=== PATIENT | female | born 1990 | race Caucasian/White ===

== ENCOUNTER 2016-06-21 15:17 | Outpatient (CLI) | payer MEDICAID ==
[~2016-06-21] VITALS: Ht 152.4 cm; Wt 84.5 kg
--- NOTE | 2016-06-21 16:49 | RADRPT ---
PROCEDURE: US OB. CLINICAL INDICATION: Large for gestational age. TECHNIQUE: Multiple sonographic images of the uterus were obtained. The images were revi ewed on a PACS workstation. COMPARISON: No prior studies are available for comparison. FINDINGS: There is a single live intrauterine gestation. heart rate is 146 beats per minute. Measurements were made in order to determine age. The results are as follows: BPD = 9.48 cm. HC = 33.64 cm. AC = 35.53 cm. FL = 7.22 cm. Estimated weight is 3573 +/- 536 grams. LMP growth percentile is 91%. Menstrual age by ultrasound dates is 38 weeks 3 days. The estimated date of delivery is 07/02/2016. Position is cephalic and placenta is fundal grade II. There is no evidence for an abruption or place nta previa. IMPRESSION: 1. Single live intrauterine gestation of 38 weeks 3 days menstrual age by ultrasound dates. 2. The estimated date of delivery is 07/02/2016. 3. Estimated weight is 3573 g which is at the 91st percentile. RPTAT: QQ .Juwan Montoya MD, Date Time Electronically viewed and signed by .Juwan Montoya MD, on 06/21/2016 16:49 .R/
--- NOTE | 2016-06-21 16:56 | RADRPT ---
PROCEDURE: US OB biophysical profile. CLINICAL INDICATION: decreased movements, macrosomia TECHNIQUE: Multiple sonographic images of the pelvis were obtained. The images were reviewed on a PACS workstation. COMPARISON: No prior studies are available for comparison. FINDINGS: There is a single viable intrauterine gestation. Cardiac activity is present with 148 beats per min kemi. There is a vertex presentation. The placenta is fundal. There is no evidence of placental abruption. There is a slightly decreased amount of amniotic fluid with an TAISHA = 7.2 cm. Biophysical profile: movement 2/2 tone 2/2. breathing 2/2 TAISHA 2/2 Total 09/21 RPTAT: AA . IMPRESSION: Normal biophysical profile. Slightly decreased TAISHA. .Roberto Carlos Monroe MD, MD Date Time Electronically viewed and signed by .Roberto Carlos Monroe MD, MD on 06/21/2016 16:55 .S/
[2016-06-21 17:08] VITALS: BP 129/78; PULSE 68; RESP 18
== END 2016-06-21 18:48 | disposition home or self-care (01) ==
LOC: OBT 15:17 → L-D 15:18 → OBG 16:07 → OBT 18:48
PROVIDERS: ATTEND Obstetrics & Gynecology
DX: O36.63X0 Maternal care for excessive fetal growth, third trimester, not applicable or unspecified (principal); O36.8130 Decreased fetal movements, third trimester, not applicable or unspecified; Z3A.37 37 weeks gestation of pregnancy
CPT/HCPCS: 76816; 76818; G0463

== ENCOUNTER 2016-07-05 18:38 | Inpatient (IN) | payer MEDICAID ==
[~2016-07-05] VITALS: Ht 154.9 cm; Wt 89.5 kg
[2016-07-05] MEDS ORDERED: OXYTOCIN 30 UNITS/LR 500 ML IV PRN (20:00)
[2016-07-05] MEDS ORDERED: LIDOCAINE 1% (MPF) 30 ML INJ INJ PRN (20:00)
[2016-07-05] MEDS ORDERED: CARBOPROST 250 MCG INJ IM PRN (20:00)
[2016-07-05] MEDS ORDERED: IBUPROFEN 600 MG TAB PO PRN (20:00)
[2016-07-05] MEDS ORDERED: BUTORPHANOL 2 MG INJ IV PRN (20:00)
[2016-07-05] MEDS ORDERED: MISOPROSTOL 200 MCG TAB PR PRN (20:00)
[2016-07-05] MEDS ORDERED: METHYLERGONOVINE 0.2 MG INJ IM PRN (20:00)
--- NOTE | 2016-07-05 20:53 | RADRPT ---
PROCEDURE: OB ultrasound for biophysical profile CLINICAL INDICATION: Biophysical profile. . TECHNIQUE: Multiple sonographic images of the pelvis were obtained. Transabdominal views are obta ined. COMPARISON: 06/21/2016 FINDINGS: Single intrauterine gestation. Presentation: Cephalic. Placenta: Fundal No evidence of placental abruption. No evidence of placenta previa. breathing movement = 2/2 tone = 2/2 motion = 2/2 TAISHA = 2/2 TAISHA = 9.5 cm, improved from previous 7.2 cm. heart rate: 144 beats per minute IMPRESSION: Single intrauterine gestation. Biophysical profile 09/21 RPTAT: AADD .Mehrdad Kim MD, MD Date Time Electronically viewed and signed by .Mehrdad Kim MD, on 07/05/2016 20:52 .B/
--- NOTE | 2016-07-05 20:56 | RADRPT ---
PROCEDURE: Obstetrical ultrasound. CLINICAL INDICATION: , evaluation. Pelvic pain. TECHNIQUE: Transabdominal sonographic images of the pelvis are obtained. COMPARISON: OB ultrasound 06/21/2016 FINDINGS: Single intrauterine gestation. There is a cephalic presentation. Measurements were made in order to determine age. The results are as follows: BPD = 9.72 cm HC = 34.19 cm AC = 35.88 cm FL = 7.45 cm Heart rate = 144 beats per minute The placenta is fundal. There is no evidence for an abruption or placenta previa. Ovaries are not visualized. IMPRESSION: Single intrauterine gestation of approximately 39 weeks 2 days by ultrasound criteria. [place] estimated weight = 3775 g; 76 percentile for gestational age of 39 weeks 1 days. RPTAT: AADD .Mehrdad Kim MD, Date Time Electronically viewed and signed by .Mehrdad Kim MD, MD on 07/05/2016 20:56 .B/
[2016-07-05] MEDS: LACTATED RINGER'S 1,000 ML IV SCH (21:00)
[2016-07-05 21:06] LABS: ADD SCAN DIFF NO
[2016-07-05 21:08] LABS: ADD UMIC YES; URINE BILIRUBIN (Dip) NEGATIVE (NEGATIVE); URINE BLOOD (Dip) 2+ (NEGATIVE); URINE COLOR YELLOW (YELLOW); URINE GLUCOSE (Dip) NEGATIVE (NEGATIVE); URINE KETONES (Dip) NEGATIVE (NEGATIVE); URINE LEUKOCYTE ESTERASE (Dip) NEGATIVE (NEGATIVE); URINE NITRITE (Dip) NEGATIVE (NEGATIVE); URINE TOTAL PROTEIN (Dip) 4+ (NEGATIVE); URINE UROBILINOGEN (Dip) 0.2 E.U./dL (0.1-1.0)
[2016-07-05 21:14] LABS: BACTERIA,URINE MANY
[2016-07-05 21:15] LABS: ABNORMAL IP MESSAGE 1; BASOPHILS % 0.2 % (0.0-2.0); EOSINOPHILS % 0.2 % (0.0-7.0); LYMPHOCYTES # 2.3 10^3/ul (0.8-2.9); MEAN CORPUSCULAR HEMOGLOBIN 30.3 pg (29.0-33.0); MEAN CORPUSCULAR HGB CONC 34.3 g/dl (32.0-37.0); MEAN CORPUSCULAR VOLUME 88.4 fl (82.0-101.0); MEAN PLATELET VOLUME 13.4 fl (7.4-10.4); MONOCYTE # 0.8 10^3/ul (0.3-0.9); MONOCYTES % 7.1 % (0.0-11.0); NEUTROPHIL # 7.8 10^3/ul (1.6-7.5); NEUTROPHILS % 70.9 % (39.0-77.0); PLATELET COUNT 188 10^3/UL (140-415); RED BLOOD COUNT 3.96 10^6/ul (4.20-5.40); RED CELL DISTRIBUTION WIDTH 15.1 % (11.5-14.5)
[2016-07-05 21:17] VITALS: Ht 154.9 cm; Wt 89.5 kg
[2016-07-05 21:25] LABS: INR 0.86; PROTIME 11.7 Sec (12.2-14.2); PT RATIO 0.9
[2016-07-05 21:26] LABS: PARTIAL THROMBOPLASTIN TIME 25.7 Sec (25.0-35.0)
[2016-07-05] MEDS ORDERED: OXYTOCIN 30 UNITS/LR 500 ML IV SCH (22:00)
[2016-07-05 23:28] LABS: ALBUMIN 3.1 g/dl (3.3-4.9); ALBUMIN/GLOBULIN RATIO 0.91; CALCIUM 9.2 mg/dl (8.4-10.2); CREATININE 0.7 mg/dl (0.44-1.00); POTASSIUM 4.2 mmol/L (3.5-5.1); TOTAL PROTEIN 6.5 g/dl (6.1-8.1)
[2016-07-06] MEDS ORDERED: LACTATED RINGER'S 1,000 ML IV PRN (00:01)
[2016-07-06] MEDS ORDERED: FENTAnyl 2MCG/ML-ROPIV 0.2% 100 ML ONE (03:37)
[2016-07-06] MEDS ORDERED: FENTAnyl 2MCG/ML-ROPIV 0.2% 100 ML BAG EPI SCH (04:00)
[2016-07-06] MEDS ORDERED: ONDANSETRON 4 MG INJ IV PRN (04:00)
[2016-07-06] MEDS ORDERED: DIPHENHYDRAMINE 50 MG INJ IV PRN (04:00)
[2016-07-06] MEDS ORDERED: NALOXONE (0.4 MG/ML) INJ IV PRN (04:00)
[2016-07-06] MEDS: LACTATED RINGER'S 1,000 ML IV SCH ×3 (04:08→16:20)
--- NOTE | 2016-07-06 15:11 | HP ---
Date/Time of Note Date/Time of Note DATE: 07/06/16 TIME: 15:10 OB - History Hx of Present Free Text/Dictation @39+wks GA PIH in early labor : 1 Para: 0 Care: Good Care Ultrasounds: Normal mid trimester US Obstetrical Complications: None Past Family/Social History * Past Medical, Surgical, Family and Obstetric Histories reviewed from chart. OB Admission Exam Physical Exam Abdomen: WNL Cervical Dilatation: 3cm Effacement: 75% Station: -1 Membranes: Intact Heart Rate: 140's Accelerations: Accelerations Present Decelerations: No Decelerations Varibility: Moderate Contractions on Admission: 6-10 Minutes Apart Last 72 hours Lab Results CBC & BMP 07/05/16 20:54 Liver Function Test 07/05/16 20:54 Alanine Aminotransferase (ALT/SGPT) 19 Albumin 3.1 L Alkaline Phosphatase 130 H Aspartate Amino Transf (AST/SGOT) 19 Direct Bilirubin 0.00 Total Protein 6.5 OB Assessment/Plan Reason for admission: observation Induction Method: per Pitocin Protocol YURIY WALKER M.D. July 06, 2016 15:11
[2016-07-06] MEDS: OXYTOCIN 30 UNITS/LR 500 ML IV SCH ×3 (19:19→20:41)
--- NOTE | 2016-07-06 20:12 | LDN ---
Date/Time of Note Date/Time of Note DATE: 07/06/16 TIME: 20:11 Delivery Summary Assisted Vaginal Delivery: Vacuum (2 attempts bradycardia) Meconium: Particulate Episiotomy: No Anesthesia type: Epidural Estimated blood loss: 200 Sponge & Needle done & correct: Yes All needle counts correct: Yes Any foreign bodies felt in the: No Problems: Delivery Information Apgars 1 Minute: 5 5 Minute: 9 Suctioning Nose & mouth suctioned at juanis: Yes Delee suction performed: Yes Umbilical Cord Umbilical cord with: 3 Vessels Cord presentations: nuchal cord (tight x1) Cord Blood was obtained: Yes Mother & Baby Disposition Disposition Mom & Baby to Maternity; Good: Yes Baby to NICU: No YURIY WALKER M.D. July 06, 2016 20:12
[2016-07-06] MEDS ORDERED: ACETAMINOPHEN/CODEINE #3 TAB PO ONE (20:20)
[2016-07-06] MEDS ORDERED: MAGNESIUM SULFATE 4 GM/100 ML 100 ML IVPB ONE (21:00)
[2016-07-06] MEDS: LABETALOL 200 MG TAB PO SCH (21:01)
[2016-07-06 21:06] LABS: ADD SCAN DIFF NO
[2016-07-06 21:21] LABS: ABNORMAL IP MESSAGE 1; BASOPHILS % 0.1 % (0.0-2.0); HEMATOCRIT 31.8 % (37.0-47.0); HEMOGLOBIN 10.8 g/dl (12.0-16.0); LYMPHOCYTES # 1.2 10^3/ul (0.8-2.9); LYMPHOCYTES % 6.5 % (15.0-51.0); MEAN CORPUSCULAR HEMOGLOBIN 30.3 pg (29.0-33.0); MEAN CORPUSCULAR VOLUME 89.1 fl (82.0-101.0); MEAN PLATELET VOLUME 13.6 fl (7.4-10.4); MONOCYTE # 1.6 10^3/ul (0.3-0.9); MONOCYTES % 8.3 % (0.0-11.0); NEUTROPHIL # 16.1 10^3/ul (1.6-7.5); NEUTROPHILS % 84.5 % (39.0-77.0); PLATELET COUNT 156 10^3/UL (140-415); RED BLOOD COUNT 3.57 10^6/ul (4.20-5.40); RED CELL DISTRIBUTION WIDTH 15.3 % (11.5-14.5); WHITE BLOOD COUNT 19.1 10^3/ul (4.8-10.8)
[2016-07-06 21:22] LABS: ADD UMIC YES; URINE BILIRUBIN (Dip) NEGATIVE (NEGATIVE); URINE BLOOD (Dip) 3+ (NEGATIVE); URINE COLOR LT. YELLOW (YELLOW); URINE GLUCOSE (Dip) NEGATIVE (NEGATIVE); URINE KETONES (Dip) NEGATIVE (NEGATIVE); URINE LEUKOCYTE ESTERASE (Dip) TRACE (NEGATIVE); URINE NITRITE (Dip) NEGATIVE (NEGATIVE); URINE TOTAL PROTEIN (Dip) 1+ (NEGATIVE); URINE UROBILINOGEN (Dip) 0.2 E.U./dL (0.1-1.0)
[2016-07-06 21:26] LABS: INR 1.01; PROTIME 13.3 Sec (12.2-14.2)
[2016-07-06 21:27] LABS: PARTIAL THROMBOPLASTIN TIME 27.6 Sec (25.0-35.0)
[2016-07-06 21:32] LABS: ALBUMIN 2.5 g/dl (3.3-4.9); ALBUMIN/GLOBULIN RATIO 0.86; BILIRUBIN,INDIRECT 0.1 mg/dl (0-1.1); BILIRUBIN,TOTAL 0.1 mg/dl (0.2-1.3); CALCIUM 8.2 mg/dl (8.4-10.2); CREATININE 0.92 mg/dl (0.44-1.00); TOTAL PROTEIN 5.4 g/dl (6.1-8.1)
[2016-07-06] MEDS: MAGNESIUM SULFATE 20 GM/500 ML 500 ML IV SCH ×2 (21:33→23:20)
[2016-07-06 21:34] LABS: BACTERIA,URINE FEW; SQUAMOUS EPITHELIAL CELL,UR MODERATE; URINE RBCS >50 /HPF (0)
[2016-07-06] MEDS: LACTATED RINGER'S 1,000 ML IV* SCH (22:29)
[2016-07-06] MEDS ORDERED: SENNA/DOCUSATE NA (8.6MG/50MG) TAB PO PRN (22:30)
[2016-07-06] MEDS ORDERED: METHYLERGONOVINE 0.2 MG INJ IM PRN (22:30)
[2016-07-06] MEDS ORDERED: OXYCODONE/ASPIRIN (4.88/325) TAB PO PRN (22:30)
[2016-07-06] MEDS ORDERED: MISOPROSTOL 200 MCG TAB PR PRN (22:30)
[2016-07-06] MEDS ORDERED: LANOLIN 7 GM TUBE TOP PRN (22:30)
[2016-07-06] MEDS ORDERED: OXYTOCIN 30 UNITS/LR 500 ML IV PRN (22:30)
[2016-07-06] MEDS ORDERED: BENZOCAINE 20% 56 ML SPRAY TOP PRN (22:30)
[2016-07-06] MEDS ORDERED: ZOLPIDEM 5 MG TAB PO PRN (22:30)
[2016-07-06] MEDS ORDERED: WITCH HAZEL/GLYCERIN PAD PR PRN (22:30)
[2016-07-06] MEDS ORDERED: CARBOPROST 250 MCG INJ IM PRN (22:30)
[2016-07-06 22:45] VITALS: BP_SYST 121; BP_SYST 131; BP_DIAS 61; BP_DIAS 74; PULSE 91; RESP 20
[2016-07-07] VITALS (16 sets, daily range): BP systolic 104–135; BP diastolic 58–84; PULSE 78–89; RESP 16–20
[2016-07-07] MEDS: OXYTOCIN 30 UNITS/LR 500 ML IV SCH (01:09)
--- NOTE | 2016-07-07 01:17 | DELSUM ---
Delivery Summary A-C Datetime Report Generated by CPN: 07/07/2016 01:17 DELIVERY PERSONNEL Handle Rounder Operator: DAVID MUNIZ MATERNAL INFORMATION Delivery Anesthesia: Epidural Medications in Delivery: LR WITH 30 UNITS OF PITOCIN Estimated Blood Loss (ml): 200 Placenta Cultured: No Maternal Complications: Other Other Maternal Complications: PIH, IOL LABOR SUMMARY EDC: 07/11/2016 00:00 No. Babies in Womb: 1 Attempted: No Labor Anesthesia: Epidural LABOR INFORMATION Reason for Induction: Gest. HTN/PreEclam/Eclamp Onset of Labor: 06/18/2016 22:45 Complete Dilatation: 07/06/2016 17:14 Oxytocin: Induction Group B Beta Strep: Negative Antibiotics # of Doses: 0 Steroids Given: None Reason Steroids Not Administered: Not Applicable MEMBRANES Membranes Rupture Method: Spontaneous Rupture of Membranes: 07/06/2016 11:12 Length of Rupture (hr): 7.97 Amniotic Fluid Color: Clear Amniotic Fluid Amount: Scant Amniotic Fluid Odor: None STAGES OF LABOR Stage 1 hr: 426 Stage 1 min: 29 Stage 2 hr: 1 Stage 2 min: 56 Stage 3 hr: 0 Stage 3 min: 8 Total Time in Labor hr: 428 Total Time in Labor min: 33 VAGINAL DELIVERY Episiotomy: None Laceration Extension: First Degree Laceration Type: Vaginal Laceration Repair: Yes Initial Vag Sponge Count: 20 Final Vag Sponge Count: 20 Initial Vag Sharps Count: 1 Final Vag Sharps Count: 2 Sponge Count Correct: Yes Sharps Count Correct: Yes BABY A INFORMATION Infant Delivery Date/Time: 07/06/2016 19:10 Method of Delivery: Vaginal Method of Delivery: Vaginal Born in Route : No : N/A Forceps: N/A Vacuum Extraction: Successful Shoulder Dystocia : No ASSISTED DELIVERY BABY A Indication for Assisted Delivery: BRADYCARDIA Position Vacuum/Forcep Apply: Left Occipital Anterior Vacuum Number of Pulls: 2 Vacuum Number of PopOffs: 0 Vacuum Maximum Pressure Obtained: 500 Reduce Pressure btwn Ctx: Yes Vacuum [employer] Manager: KIWI SHOULDER DYSTOCIA BABY A Infant Delivery Date/Time: 07/06/2016 19:10 PRESENTATION/POSITION BABY A Presentation: Cephalic Presentation: Cephalic Presentation: Cephalic Cephalic Presentation: Vertex Vertex Position: Left Occipital Anterior Breech Presentation: N/A PLACENTA INFORMATION BABY A Placenta Delivery Time : 07/06/2016 19:18 Placenta Method of Delivery: Spontaneous Placenta Method of Delivery: Spontaneous Placenta Status: Delivered SCORES BABY A Heart Rate 1 min: >100 bpm Resp Effort 1 min: Slow, Irregular Reflex Irritability 1 min: Grimace Muscle Tone 1 min: Some Flexion of Extrem Color 1 min: Blue/Pale Resuscitation Effort 1 min: Tactile Stimulation; Oxygen SCORE 1 MIN: 5 Heart Rate 5 min: >100 bpm Resp Effort 5 min: Good Cry Reflex Irritability 5 min: Cough/Sneeze/Pulls Away Muscle Tone 5 min: Active Motion Color 5 min: Body [place], Extremit Blue Resuscitation Effort 5 min: Tactile Stimulation; Oxygen SCORE 5 MIN: 9 Heart Rate 10 min: >100 bpm Resp Effort 10 min: Good Cry Reflex Irritability 10 min: Cough/Sneeze/Pulls Away Muscle Tone 10 min: Active Motion Color 10 min: Body [place], Extremit Blue Resuscitation Effort 10 min: Tactile Stimulation; Oxygen SCORE 10 MIN: 9 INFANT INFORMATION BABY A Gestational Age at Delivery: 39.2 Gestational Status: Full Term- 39- 40.6 Weeks Outcome : Liveborn Infant Condition : Stable Infant Sex: Male Infant Sex: Male IDENTIFICATION/MEDS BABY A ID Band Number: [id number] ID Band Location: Right Leg; Left Arm Sensor Applied: Yes Sensor Number: [id number] Sensor Location : Cord Clamp Vitamin K Given : Not Given Erythromycin Given: Not Given WEIGHT/LENGTH BABY A Infant Birthweight (gm): 3715 Weight (lb): 8 Infant Weight (oz): 3 Infant Length (in): 19.50 Length (cm): 49.53 CORD INFORMATION BABY A No. Cord Vessels: 3 Nuchal Cord : Around Neck x1, Tight Cord Blood Taken: Yes Suction: Mouth; Nose ASSESSMENT BABY A Complications: Extended Bradycardi; Multiple Variable Decels; Meconium Infant Complications- Other: THICK MECONIUM Physical Findings at Delivery: Within Normal Limits Infant Respirations: Appears Normal Site Leader/ALS Called : No Care By: ATIYA JONES RN Transferred To: Remains with Mother
[2016-07-07] MEDS: LACTATED RINGER'S 1,000 ML IV* SCH ×2 (03:13→15:49)
[2016-07-07] MEDS: IBUPROFEN 600 MG TAB PO SCH ×5 (05:24→23:49)
[2016-07-07 09:00] LABS: ADD SCAN DIFF NO
[2016-07-07] MEDS: LABETALOL 200 MG TAB PO SCH ×2 (09:00→21:00)
[2016-07-07 09:07] LABS: ABNORMAL IP MESSAGE 1; BASOPHILS % 0.2 % (0.0-2.0); EOSINOPHILS % 0.1 % (0.0-7.0); HEMATOCRIT 29.7 % (37.0-47.0); HEMOGLOBIN 10.1 g/dl (12.0-16.0); LYMPHOCYTES # 2.1 10^3/ul (0.8-2.9); LYMPHOCYTES % 15.6 % (15.0-51.0); MEAN CORPUSCULAR HEMOGLOBIN 30.5 pg (29.0-33.0); MEAN CORPUSCULAR VOLUME 89.7 fl (82.0-101.0); MEAN PLATELET VOLUME 13.4 fl (7.4-10.4); MONOCYTE # 0.9 10^3/ul (0.3-0.9); MONOCYTES % 6.4 % (0.0-11.0); NEUTROPHIL # 10.6 10^3/ul (1.6-7.5); NEUTROPHILS % 77.2 % (39.0-77.0); PLATELET COUNT 151 10^3/UL (140-415); RED BLOOD COUNT 3.31 10^6/ul (4.20-5.40); RED CELL DISTRIBUTION WIDTH 15.4 % (11.5-14.5); WHITE BLOOD COUNT 13.7 10^3/ul (4.8-10.8)
[2016-07-07] MEDS: SENNA/DOCUSATE NA (8.6MG/50MG) TAB PO SCH ×2 (09:09→21:18)
[2016-07-07] MEDS ORDERED: ACETAMINOPHEN 325 MG TAB PO PRN (12:30)
[2016-07-07] MEDS ORDERED: DIBUCAINE 1% 30 GM OINT TOP PRN (12:30)
[2016-07-07 12:31] LABS: RUBELLA ANTIBODY - IGG 1.52 index
--- NOTE | 2016-07-07 14:21 | QN ---
Documentation Comment PPD#1 is stable afebrile BP WNL afebriel +Adequate urine +BM VS stable Gen NAD Abd soft NT ND Genitalia No blood at perinium --->Sto Mg after 24 hrs from delivery ---->Discharge tomorrow YURIY WALKER M.D. July 07, 2016 14:21
--- NOTE | 2016-07-07 14:23 | DS ---
Date/Time of Note Date/Time of Note DATE: 07/07/16 TIME: 14:22 Discharge Summary Admission/Discharge Info Admit Date/Time July 05, 2016 at 18:38 Discharge Date/Time June Final Diagnosis Labor Preeclampsia Patient Condition: Stable Procedures Vaginal delivery Hospital Course Uneventful Home Meds No Active Prescriptions or Reported Meds Primary Care Provider Care Physician No Primary Pending Labs Laboratory Tests Test 07/06/16 20:59 07/07/16 00:30 07/07/16 08:28 07/07/16 11:55 White Blood Count 19.110^3/ul (4.8-10.8) 13.710^3/ul (4.8-10.8) Red Blood Count 3.5710^6/ul (4.20-5.40) 3.3110^6/ul (4.20-5.40) Hemoglobin 10.8g/dl (12.0-16.0) 10.1g/dl (12.0-16.0) Hematocrit 31.8% (37.0-47.0) 29.7% (37.0-47.0) Mean Corpuscular Volume 89.1fl (82.0-101.0) 89.7fl (82.0-101.0) Mean Corpuscular Hemoglobin 30.3pg (29.0-33.0) 30.5pg (29.0-33.0) Mean Corpuscular Hemoglobin Concent 34.0g/dl (32.0-37.0) 34.0g/dl (32.0-37.0) Red Cell Distribution Width 15.3% (11.5-14.5) 15.4% (11.5-14.5) Platelet Count 24383^3/UL (140-415) 44039^3/UL (140-415) Mean Platelet Volume 13.6fl (7.4-10.4) 13.4fl (7.4-10.4) Neutrophils % 84.5% (39.0-77.0) 77.2% (39.0-77.0) Lymphocytes % 6.5% (15.0-51.0) 15.6% (15.0-51.0) Monocytes % 8.3% (0.0-11.0) 6.4% (0.0-11.0) Eosinophils % 0.0% (0.0-7.0) 0.1% (0.0-7.0) Basophils % 0.1% (0.0-2.0) 0.2% (0.0-2.0) Nucleated Red Blood Cells % 0.0/100WBC (0.0-0.0) 0.0/100WBC (0.0-0.0) Neutrophils # 16.110^3/ul (1.6-7.5) 10.610^3/ul (1.6-7.5) Lymphocytes # 1.210^3/ul (0.8-2.9) 2.110^3/ul (0.8-2.9) Monocytes # 1.610^3/ul (0.3-0.9) 0.910^3/ul (0.3-0.9) Eosinophils # 0.010^3/ul (0.0-0.5) 0.010^3/ul (0.0-0.5) Basophils # 0.010^3/ul (0.0-0.1) 0.010^3/ul (0.0-0.1) Nucleated Red Blood Cells # 0.010^3/ul (0.0-0.0) 0.010^3/ul (0.0-0.0) Prothrombin Time 13.3Sec (12.2-14.2) Prothrombin Time Ratio 1.0 INR International Normalized Ratio 1.01 Activated Partial Thromboplast Time 27.6Sec (25.0-35.0) Fibrinogen 478.0mg/dl (207-461) Urine Color LT. YELLOW (YELLOW) Urine Clarity SLIGHTLY CLOUDY (CLEAR) Urine pH 5.5 (5.0-9.0) Urine Specific [place] 1.010 (1.003-1.030) Urine Ketones NEGATIVE (NEGATIVE) Urine Nitrite NEGATIVE (NEGATIVE) Urine Bilirubin NEGATIVE (NEGATIVE) Urine Urobilinogen 0.2 E.U./dL (0.1-1.0) Urine Leukocyte Esterase TRACE (NEGATIVE) Urine Microscopic RBC >50/HPF (0) Urine Microscopic WBC 2-5/HPF (0) Urine Squamous Epithelial Cells MODERATE Urine Bacteria FEW Urine Hemoglobin 3+ (NEGATIVE) Urine Glucose NEGATIVE% (NEGATIVE) Urine Total Protein 1+ (NEGATIVE) Sodium Level 131mmol/L (135-144) Potassium Level 4.0mmol/L (3.5-5.1) Chloride Level 108mmol/L (97-110) Carbon Dioxide Level 21mmol/L (21-31) Anion Gap 6 (8-16) Blood Urea Nitrogen 16mg/dl (7-20) Creatinine 0.92mg/dl (0.44-1.00) Glucose Level 89mg/dl (70-220) Uric Acid 6.0mg/dl (3.1-7.9) Calcium Level 8.2mg/dl (8.4-10.2) Total Bilirubin 0.1mg/dl (0.2-1.3) Direct Bilirubin 0.00mg/dl (0.00-0.20) Indirect Bilirubin 0.1mg/dl (0-1.1) Aspartate Amino Transf (AST/SGOT) 24IU/L (15-46) Alanine Aminotransferase (ALT/SGPT) 25IU/L (13-69) Alkaline Phosphatase 118IU/L (42-121) Total Protein 5.4g/dl (6.1-8.1) Albumin 2.5g/dl (3.3-4.9) Globulin 2.90g/dl (1.3-3.2) Albumin/Globulin Ratio 0.86 Magnesium Level 4.7mg/dl (1.7-2.5) 6.1mg/dl (1.7-2.5) 6.4mg/dl (1.7-2.5) YURIY WALKER M.D. July 07, 2016 14:23
[2016-07-07] MEDS: MAGNESIUM SULFATE 20 GM/500 ML 500 ML IV SCH (15:51)
[2016-07-08 04:00] VITALS: BP 138/84; PULSE 80; RESP 17
[2016-07-08] MEDS: IBUPROFEN 600 MG TAB PO SCH (05:32)
[2016-07-08 08:10] VITALS: BP 103/51; PULSE 77; RESP 20
[2016-07-08 08:20] VITALS: BP 125/79; RESP 20
[2016-07-08] MEDS: LABETALOL 200 MG TAB PO SCH (09:00)
[2016-07-08] MEDS ORDERED: DIPHTH/TET/ACEL PERTUSS (ADULT) 0.5 ML VIAL IM* ONE (09:00)
[2016-07-08] MEDS: SENNA/DOCUSATE NA (8.6MG/50MG) TAB PO SCH (09:53)
== END 2016-07-08 14:54 | disposition home or self-care (01) | DRG 775 ==
LOC: L-D 18:38 → PP1 07-06 22:42 → EDSTATUS 07-10 18:37
PROVIDERS: ADMIT Obstetrics & Gynecology; ATTEND Obstetrics & Gynecology
PROC: 10D07Z6 Extraction of Products of Conception, Vacuum, Via Natural or Artificial Opening (ICD-10-PCS; principal; 2016-07-06)
PROC: 3E00X4Z Introduction of Serum, Toxoid and Vaccine into Skin and Mucous Membranes, External Approach (ICD-10-PCS; 2016-07-08)
DX: O69.81X0 Labor and delivery complicated by cord around neck, without compression, not applicable or unspecified (principal); O13.4 Gestational [pregnancy-induced] hypertension without significant proteinuria, complicating childbirth; O76 Abnormality in fetal heart rate and rhythm complicating labor and delivery; Z23 Encounter for immunization; Z3A.39 39 weeks gestation of pregnancy; Z37.0 Single live birth
CPT/HCPCS: 62319; 76815; 76818; 80053; 81001; 83735; 84560; 85025; 85384; 85610; 85730; 86592; 86703; 86762; 86900; 86901; 87340; 88307; 90715; 99464; J2590; J3010; J3475; J7120